=== PATIENT | male | born 1985 | race Caucasian/White ===

== ENCOUNTER 2021-06-12 06:59 | Emergency (ER) | payer BC, OTHER ==
[~2021-06-12] VITALS: Ht 177.8 cm; Wt 86.2 kg
--- NOTE | 2021-06-13 12:51 | EKG ---
[facility] [address] [facility] [place], [place] [address] Signed Normal sinus rhythm Early repolarization Normal ECG No previous ECGs available Confirmed by JANETTE PORTILLO DO ([id number]) on 06/13/2021 12:51:15 PM Electronically Signed By: JANETTE PORTILLO DO 06/13/21 1251 PATIENT NAME: NEO YEBOAH Electrocardiogram DATE OF : 87 PHYSICIAN: JANETTE PORTILLO DO REPORT #: [id number] REPORT IS CONFIDENTIAL AND NOT TO BE RELEASED WITHOUT AUTHORIZATION
== END 2021-06-12 09:50 | disposition home or self-care (01) ==
LOC: ED 06:59
DX: R42 Dizziness and giddiness (principal); E03.9 Hypothyroidism, unspecified; F17.290 Nicotine dependence, other tobacco product, uncomplicated; Z20.822 Contact with and (suspected) exposure to COVID-19
CPT/HCPCS: 71045; 80053; 83735; 83880; 84484; 85025; 93005; 93010; 96374; 99284-25; C9803; J2060; U0003

== ENCOUNTER 2022-02-06 06:32 | Emergency (ER) | payer OTHER, BC ==
[~2022-02-06] VITALS: Ht 177.8 cm; Wt 86.2 kg
== END 2022-02-06 08:53 | disposition home or self-care (01) ==
LOC: ED 06:32
DX: S93.601A Unspecified sprain of right foot, initial encounter (principal); E03.9 Hypothyroidism, unspecified; W17.89XA Other fall from one level to another, initial encounter; X50.1XXA Overexertion from prolonged static or awkward postures, initial encounter
CPT/HCPCS: 73610; 73630; 99283-25

== ENCOUNTER 2023-02-19 16:56 | Emergency (ER) | payer OTHER ==
[~2023-02-19] VITALS: Ht 180.3 cm; Wt 95.7 kg
[2023-02-19] MEDS ORDERED: CEPHALEXIN500 M1 PO (17:33)
[2023-02-19 17:40] VITALS: BP 136/87
== END 2023-02-19 17:40 | disposition home or self-care (01) ==
LOC: ED 16:56
DX: S51.832A Puncture wound without foreign body of left forearm, initial encounter (principal); L03.114 Cellulitis of left upper limb; E03.9 Hypothyroidism, unspecified; X58.XXXA Exposure to other specified factors, initial encounter
CPT/HCPCS: 99283; A9270

== ENCOUNTER 2023-05-27 16:25 | Emergency (ER) | payer OTHER ==
[~2023-05-27] VITALS: Ht 177.8 cm; Wt 87.4 kg
[~2023-05-27 16:25] MED LIST: CEPHALEXIN500 M1 PO; NEURONTIN300 MG PO; NORVASC5 MG PO; OMEPRAZOLE20 MG PO
--- OUTSIDE RECORDS SUMMARY | 2023-05-27 16:32 | XMS ---
PreManage Notification: NEO YEBOAH Security Tie In Hand Events 2 event(s) in the past 18 months Most recent security events: Elopement at [facility] 04/27/2023 18:06 - Patient eloped with IV in place. - Patient eloped before treatment completed. - Patient with suicidal and/or homicidal ideations eloped. Details: Patient LWBS Elopement at [facility] 01/12/2023 19:38 - Patient eloped with IV in place. - Patient eloped before treatment completed. - Patient with suicidal and/or homicidal ideations eloped. Details: Patient LWBS CRITERIA MET - Group Notification - [facility] - 2 Visits in 30 Days CARE PROVIDERS -[place]- Dentist: [facility] But[facility] PHONE: [phone] Staci has no Care Guidelines for this patient. E.D. VISIT COUNT (12 MO.) [address] [place] [address] TOTAL 4 NOTE: Visits indicate total known visits. ED/UCC VISIT TRACKING (12 MO.) 05/27/2023 16:25 [facility] TYPE: Emergency COMPLAINT: - ABDOMINAL PAIN 04/27/2023 18:06 [facility] TYPE: Emergency COMPLAINT: - LT FINGER LACERATION 02/19/2023 16:58 [facility] TYPE: Emergency COMPLAINT: - LT ARM INJURY DIAGNOSES: - Cellulitis of left upper limb - Cellulitis of left upper limb - Exposure to other specified factors, initial encounter - Hypothyroidism, unspecified - Puncture wound without foreign body of left forearm, initial encounter - Puncture wound without foreign body of left forearm, initial encounter 01/12/2023 19:38 [facility] TYPE: Emergency COMPLAINT: - LT HAND PAIN INPATIENT VISIT TRACKING (12 MO.) No inpatient visits to display in this time frame [email or web address]
[2023-05-27 17:02] LABS: BASOPHILS 0.4 % (0-2); EOSINOPHILS 0.6 % (0-6); HEMATOCRIT 49.4 % (35.0-50.0); HEMOGLOBIN 16.4 g/dL (12.0-18.0); LYMPHOCYTES 7.6 % (24-44); MCH 30.1 (27-36); MCHC 33.2 g/dl (30-36); MCV 90.7 fl (81-99); MONOCYTES 5.7 % (0-12); NEUTROPHILS 85.7 % (39-80); PLATELET COUNT 301 K/uL (140-440); RBC 5.44 M/ul (4.3-5.7)
[2023-05-27 17:11] LABS: ALBUMIN 3.9 g/dL (3.4-5.0); ALBUMIN/GLOBULIN RATIO 1.11 (1.1-2.4); ANION GAP 15.4 (7-21); BILIRUBIN, TOTAL 0.5 ng/dL (0.2-1.0); BUN/CREATININE RATIO 15.55 (6.0-28.6); CREATININE, SERUM 0.9 mg/dL (0.70-1.30); MAGNESIUM 1.5 mg/dL (1.8-2.4); POTASSIUM 3.4 mmol/L (3.5-5.1); PROTEIN, TOTAL 7.4 g/dL (6.4-8.2)
[2023-05-27 18:31] LABS: BILIRUBIN, URINE NEGATIVE (negative); BLOOD/HGB, URINE NEGATIVE (Negative); KETONE, URINE NEGATIVE (Negative); LEUK ESTERASE, URINE NEGATIVE (negative); NITRITE, URINE NEGATIVE (negative)
[2023-05-27] MEDS ORDERED: ONDANSETRON ODT8 MG PO (19:38)
[2023-05-27 20:25] VITALS: BP 143/99
== END 2023-05-27 20:25 | disposition home or self-care (01) ==
LOC: ED 16:25
PROVIDERS: Emergency Medicine
DX: K52.9 Noninfective gastroenteritis and colitis, unspecified (principal); D72.829 Elevated white blood cell count, unspecified; I10 Essential (primary) hypertension; E03.9 Hypothyroidism, unspecified; Z79.899 Other long term (current) drug therapy
CPT/HCPCS: 36415; 74177; 80053; 81003; 83690; 83735; 85025; 96361; 96375; 96376; 99284-25; A9270; J1170; J1790; J2060; J2405; J3475; J7030; Q9967